=== PATIENT | female | born 1965 ===

== ENCOUNTER → 2019-11-16 14:22 | Outpatient (CLI) | payer OTHER, SELFPAY ==
--- NOTE | ~2019-11-16 | MR_ITS ---
EXAMINATION: MR lower leg LT wo con DATE: 11/16/2019 15:45 INDICATION: Posterior left knee and calf pain and swelling. TECHNIQUE: Magnetic resonance imaging (MRI) of the left knee was performed without intravenous contra st. Sequences included coronal PD-weighted FSE, coronal PD-weighted FS FSE, sagittal T2-weighted FSE , sagittal PD-weighted FS FSE, axial T1-weighted FSE and axial PD weighted fat saturated FSE. COMPARISON: None. FINDINGS: Assessment of the left knee is more limited than a standard MRI given the larger field of view requir ed for assessment of the proximal calf. Medial compartment: Medial meniscus appears normal. Cartilage loss along the medial side of the medial tibial plateau wit h underlying subarticular edema at the medial rim. There is chondral ulceration with small subchondra l osteophytes along the medial rim of the posterior weightbearing medial femoral condyle. Small bhavesh nal osteophytes are present. Lateral compartment: There is slight lateral subluxation of the tibia with respect to the femur resulting in uncovering of the cephalad articular surface of the body of the lateral meniscus. Meniscus appears otherwise damien l with no evident tear. There is extensive full/near full-thickness cartilage loss extending from med ial collateral across the midportion of the lateral tibial plateau including the shoulder the interco ndylar eminence. There is some remodeling of the articular cortex and prominent underlying subarticul ar edema. Large deep chondral ulceration approximately 11 mm medial to lateral and approximately 1.5 cm anterior to posteriorly at the central aspect of the weightbearing lateral femoral condyle. There is additional mild underlying subarticular edema. Small marginal osteophytes are present. Patellofemoral compartment: Additional focal and near full-thickness chondral ulceration along the cephalad half of the lateral t rochlea, trochlear groove and small portion of the superolateral aspect of the medial trochlea. Regio ns of additional full/near full-thickness cartilage loss along the peripheral margins of the medial a nd lateral patellar facets with suggestion of some remodeling of the articular cortex. Small marginal osteophytes are present. Ligaments and tendons: There is a anchor tract at the posterior aspect of the lateral femoral condyle underlying the footpla te of the anterior cruciate ligament consistent with given history of prior repair. The ligament appe ars intact. The posterior cruciate ligament is normal. The medial collateral ligament and fibular col lateral ligament complex are normal. Enthesophytes and mild tendinopathy at the patellar insertion of the distal quadriceps tendon. Mild distal patellar tendinopathy. Mild tendinopathy at the distal mariela imembranosus tendon. The visualized medial and lateral hamstring tendons as well as the iliotibial ba nd are otherwise normal. Fluid: Likely reactive moderate sized knee joint effusion. Approximately 7 x 3 x 9 mm loose chondral body in the recess along the medial side of the posterior weightbearing lateral femoral condyle. Multilocula ryan ganglion cyst at the popliteal recess which extends approximately 6.5 cm in length along the deep margin of the popliteus muscle and measures 2.2 x 1.6 cm in maximal orthogonal dimensions. There is edema throughout the popliteus muscle tracking caudally to its distal tibial insertion. The popliteus tendon appears to remain intact. Osseous/other: No fracture or pathologic marrow replacing process. Subcutaneous varicosities along the medial side o f the knee and proximal calf. IMPRESSION: 1. 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 2. Suture anchor tracks at the proximal femoral attachment of the otherwise intact appearing anterio
== END ==
PROVIDERS: Visit Provider Specialist
DX: M25.562 Pain in left knee (principal); M17.12 Unilateral primary osteoarthritis, left knee; M25.462 Effusion, left knee; M67.462 Ganglion, left knee
CPT/HCPCS: 73718